=== PATIENT | female | born 1975 | race Caucasian/White ===

== ENCOUNTER 2016-11-26 01:31 | Day surgery (SDC) | payer MEDICARE, MEDICAID ==
[~2016-11-26] VITALS: Ht 167.6 cm; Wt 98.4 kg
[~2016-11-26 01:31] MED LIST: CHOL400T3 PO; DOXE10CA PO; LAMO100T2 PO; LURA40TA3 PO; SULF1TAB35 PO
[2016-11-26] MEDS ORDERED: 0.9% Sodium Chloride 1,000 ML IV SCH (06:00)
[2016-11-26] MEDS ORDERED: fentaNYL-PF 50 mCg/mL 2 mL Inj IVPUSH PRN (06:00)
[2016-11-26] MEDS ORDERED: Sodium Chloride LOK Flush 10 mL Syringe IV PRN (06:00)
[2016-11-26 10:00] VITALS: BP 136/86; PULSE 83; RESP 18; O2SAT 99
[2016-11-26] MEDS ORDERED: OXCA600T PO (10:00)
[2016-11-26] MEDS ORDERED: ARIP10TA16 PO (10:06)
[2016-11-26] MEDS ORDERED: TRAZ-118 PO (10:06)
[2016-11-26] MEDS ORDERED: OMEP20CA11 PO (10:06)
[2016-11-26] MEDS ORDERED: CLOT30SO TOPICAL (10:06)
[2016-11-26] MEDS ORDERED: POLY500P23 MC (10:06)
--- NOTE | 2016-11-26 11:18 | PCM.ENDEGD ---
EGD Date of Service: November 26, 2016 Physician Tomasz Bustamante MD Pre Procedure Diagnosis: Abdominal pain Post Procedure Dx & Findings: Titer hernia esophagitis possible Velasco's esophagus Procedure Esophagogastroduodenoscopy PROCEDURE IN DETAIL: After proper sedation, Olympus video endoscope was inserted into patient's mouth and esophagus was successfully intubated. Scope introduced esophagus. Esophagus showed normal shiny whitish mucosa consistent with squamous cell component. Z line was not intact at 41 cm from the incisors. 2 cm-colored mucosa noted from the Z line. There was evidence of displacement from the GE junction. 4 quadrant biopsies obtained every 2 cm. Also there was a small erosion and biopsy obtained as well. These were placed in the same bottle. Otherwise on the Velasco's esophagus there was no mucosal suspicions for high- grade dysplasia on no banding, no nodules , no mass. 5 cm hiatal hernia noted. Scope further advanced to the stomach. Stomach showed normal shiny mucosa with normal appearing rugae folds without any ulcer mass erosion. Cardia fundus body antrum pylorus were all visualized. Retroflexion was done. Stomach was easily inflated and deflatable using air. Scope further events to the distal duodenum. Duodenum revealed normal villous structures with normal appearing folds without any mass ulcer erosion. 5 biopsies obtained for celiac disease. Impression Esophagitis with possible Velasco's biopsy per protocol Small erosion status post biopsy Hiatal hernia Recommendation Follow up in GI clinic. If she comes back as Velasco's, repeat EGD in 1 year Prilosec continue. Presedation Assessment Risks and Benefits Informed consent was obtained from the patient after all risks and benefits including but not limited to drug reaction, infection, pain, bleeding, perforation, as well as alternatives were discussed. Patient monitoring Continuous pulse oximetry, cardiac monitoring, blood pressure monitoring, IV access, and oxygen at 2L per nasal cannula. Periprocedural Fentanyl: Fentanyl 200mcg Incrementally Midazolam: Midazolam 10mg Incrementally Complications There were no periprocedural complications identified. Post Procedure Plan Post Procedure Recommendations 1. Restrict activities today. 2. Resume normal activities in the morning. 3. Resume medications. 4. GERD behavioral modification: - Avoid fatty, acidic, spicy, large meals - Do not lie down after meals - Do not eat or drink anything for at least 2 1/2 hours before going to bed at night - Discontinue tobacco and alcohol - Decrease or avoid caffeine - Avoid chocolate and mints - Decrease weight - Avoid aspirin and non steroidal anti-inflammatory agents (NSAID) such as Aleve, Advil, Mobic, Naproxen, Ibuprofen, etc 5. Add proton pump inhibitor. Take 30 minutes before 1st meal of the day. 6. Patient informed of normal post procedure side effects as bloating, drowsiness, blood streaking in the stool 7. If gastric biopsy reveal H.pylori, continue with appropriate treatment 8. If small bowel biopsy reveals celiac, continue with appropriate treatment 9. Please don't hesitate to call me with any questions Tomasz Bustamante MD November 26, 2016 11:18
[2016-11-26 11:25] VITALS: BP 129/80; PULSE 87; RESP 16; O2SAT 96
[2016-11-26 11:35] VITALS: BP 123/77; PULSE 84; RESP 16; O2SAT 96
--- NOTE | 2016-11-27 14:57 | PATH ---
SURGICAL PATHOLOGY Attending Physician:Tomasz Bustamante M.D. CASE STATUS: Signed Out PATIENT NAME: MK CASTILLO PID: [id number] : 1975 DATE COLLECTED:11/26/2016 16:57 SPECIMEN: 1: Duodenum, Biopsy 2: Esophagus, Biopsy CLINICAL HISTORY: 1 DUODENAL BX 2. DISTAL ESOPHAGUS FINAL DIAGNOSIS: A. Duodenum, Biopsy: Duodenal mucosa with no diagnostic abnormality. Negative for active inflammation, features of sprue, dysplasia, or malignancy. B. Distal Esophagus, Biopsy: Small, detached fragment of active esophagitis with focal ulceration. No fungal organisms or viral cytopathic effect identified by H&E stain; insufficient inflammatory foci / tissue for special stains. Negative for dysplasia and malignancy. Negative for intestinal metaplasia. ICD10: K20.9 GROSS DESCRIPTION: The specimen is received in two formalin filled containers labeled with the patient's name. 1). The specimen is sublabeled "duodenal" and consists of 5 portions of tissue which aggregate to 0.3 x 0.3 x 0.2 CM. The specimen is entirely submitted in cassette 1A. 2). The specimen is sublabeled "distal esophagus" and consists of 2 portions of tissue which aggregate to 0.3 x 0.3 x 0.2 CM. The specimen is entirely submitted in cassette 2A. 11/26/2016 [facility] ICD-9 CODES: CPT CODES: 1: 24845 2: 72017 Electronically Signed Out Migdalia Loyola MD [facility] Pathology [facility] [address], [place] [address] Technical component performed at [facility], [facility] [address], [place], [address]
== END 2016-11-26 23:59 | disposition home or self-care (01) ==
LOC: END 01:31
PROVIDERS: ATTEND Internal Medicine
DX: K20.9 Esophagitis, unspecified (principal); K44.9 Diaphragmatic hernia without obstruction or gangrene; R10.9 Unspecified abdominal pain; F43.10 Post-traumatic stress disorder, unspecified; F31.89 Other bipolar disorder; K59.00 Constipation, unspecified; R11.2 Nausea with vomiting, unspecified; N94.6 Dysmenorrhea, unspecified; Z90.710 Acquired absence of both cervix and uterus
CPT/HCPCS: 43239; 88305; 99153; G0500; J2250; J3010; J7030

== ENCOUNTER 2017-01-19 09:25 | Day surgery (SDC) | payer MEDICARE, MEDICAID ==
[~2017-01-19 09:25] MED LIST changes: +ARIP10TA16 PO; +CLOT30SO TOPICAL; +OMEP20CA11 PO; +OXCA600T PO; +POLY500P23 MC; +TRAZ-118 PO
[2017-01-19] MEDS ORDERED: Lidocaine Topical 2% 30 mL Jelly ONE (09:38)
== END 2017-01-19 23:59 | disposition home or self-care (01) ==
LOC: END 09:25
PROVIDERS: ATTEND Internal Medicine
DX: R10.9 Unspecified abdominal pain (principal)

== ENCOUNTER 2017-02-15 11:55 | Emergency (ER) | payer MEDICARE, MEDICAID ==
[~2017-02-15] VITALS: Ht 167.6 cm; Wt 101.8 kg
[2017-02-15 12:02] VITALS: BP 190/121; PULSE 88; RESP 20; O2SAT 96
--- NOTE | 2017-02-15 12:40 | ED.REPORT ---
HPI-Psychiatric Illness Date of Service Feb 15, 2017 ED Provider: Pearl Bhatia MD Patient is a 41 year old female with a history of depression, PTSD, anxiety, bipolar disorder and suicide attempts who presents to the ED due to suicidal ideation. Associated symptoms include insomnia. The patient reports having a manic phase last week and this week she has become extremely depressed. The patient states that she "is having a mental breakdown" and states having a plan of overdosing on her pills for suicide. Nursing Notes Stated Complaint: MENTAL BREAKDOWN/BIPOLAR Chief Complaint: Psychiatric Complaint Nursing Notes Reviewed: Yes Allergies: Coded Allergies: ziprasidone (Verified Allergy, Mild, 02/15/17) doxycycline (Verified Adverse Reaction, Severe, N&V, 12/26/15) Scheduled Cholecalciferol (Vitamin D3) (Vitamin D3) 400 Unit Tab.chew 1 TABLET PO DAILY Doxepin (Doxepin) 10 Mg Capsule 10 MG PO HS Lamotrigine (Lamotrigine) 100 Mg Tablet 400 MG PO DAILY Lurasidone (Latuda) 40 Mg Tablet 40 MG PO DAILY Omeprazole (Omeprazole) 20 Mg Capsule.dr 20 MG PO DAILY Oxcarbazepine (Oxcarbazepine) 600 Mg Tablet 600 MG PO BID Sulfamethoxazole/Trimeth 800-160 mg (Bactrim DS 800-160 mg) 1 Each Tablet 1 TABLET PO BID Trazodone (Trazodone) 100 Mg Tablet 100 MG PO HS Miscellaneous Medications Aripiprazole (Aripiprazole) 10 Mg Tablet 10 MG PO Clotrimazole 1% (Clotrimazole 1%) 30 Ml Solution Unknown Dose TOPICAL Polyethylene Glycol 8000 (Polyethylene Glycol) 500 Gm Powder 500 GM MC General Time Seen by MD: 12:40 Chief Complaint Suicidal ideation Hx Obtained From: Patient Arrived By: Walk-in Onset Occurred: 1 week ago Symptom Duration: Since onset Recent Healthcare: No recent hospitalization, Recent doctor visit Similar Sx Previous: Yes Risk-Psychiatric Illness Suicide Risk Stratification RF Statements: Risk factors reviewed Past Medical History Past Medical History bipolar PTSD anxiety OCD previous suicide attempt spinal meningitis Reports: Cancer (cervical) Reports: Depression Past Surgical History Reports: Hysterectomy Reports: Tubal ligation Smoking History Current Every Day Smoker Social History Alcohol Use: In recovery Drug Use: In recovery Ambulatory Status Independent Review of Systems Constitutional: Denies: Chills, Fever Respiratory: Denies: Non-productive cough, Shortness of breath Skin: Denies Itching, Denies Rash Psychiatric: Reports: Anxiety, Insomnia, Suicidal ideation Complete sys rev & neg: except as marked. Physical Exam Initial Vital Signs Vital Signs (First) Date Time Temp Pulse Resp B/P Pulse Ox O2 Delivery O2 Flow Rate FiO2 02/15/17 12:02 36.4 88 20 190/121 96 Room Air Initial VS: Reviewed General/Constitutional: Awake, Alert Behavior: Positive: Tearful Neurologic: Oriented X3, Speech NL, No motor deficits, No sensory deficits Abnormal Mood/Affect: Positive: Flat affect Head / Eyes: Atraumatic, Normocephalic, PERRL, EOMI Respiratory / Chest: Atraumatic, Breath sounds NL, Breath sounds = bilat, No respiratory distress Cardiovascular: Heart rate NL, Regular rhythm, Heart sounds NL Abdomen: Atraumatic, Soft, Non-tender Skin: Atraumatic, Color NL, No rash, Warm, Dry Neck: Atraumatic, Supple Upper Extremity / MS: Atraumatic, Full range of motion Interpretation & Diagnostics Lab Results Interpretation Result Diagram: 02/15/17 1253 02/15/17 1253 Test 02/15/17 12:53 02/15/17 13:18 White Blood Count 9.3th/mm3 (3.8-10.1) Red Blood Count 4.40mil/mm3 (3.90-5.20) Hemoglobin 13.7g/dL (12.0-15.6) Hematocrit 39.8% (35.0-46.0) Mean Corpuscular Volume 90.5fL (81-100) Mean Corpuscular Hemoglobin 31.1pg (27.0-35.0) Mean Corpuscular Hemoglobin Concent 34.4% (32.0-37.0) Red Cell Distribution Width 12.8% (12.3-15.4) Platelet Count 170bil/L (150-400) Neutrophils (%) (Auto) 76.8% (40-74) Lymphocytes (%) (Auto) 16.1% (14-46) Monocytes (%) (Auto) 5.7% (4-12) Eosinophils (%) (Auto) 1.0% (0-5) Basophils (%) (Auto) 0.2% (0-3) Sodium Level 136mEq/L (134-144) Potassium Level 4.2mEq/L (3.5-5.2) Chloride Level 102mEq/L (97-108) Carbon Dioxide Level 20mmol/L (18-29) Blood Urea Nitrogen 17mg/dL (6-24) Creatinine 0.80mg/dL (0.57-1.00) Estimat Glomerular Filtration Rate 114mL/min (>59) Glucose Level 92mg/dL (60-99) Calcium Level 8.0mg/dL (8.5-10.1) Total Bilirubin 0.2mg/dL (0.0-1.2) Aspartate Amino Transf (AST/SGOT) 14U/L (0-50) Alanine Aminotransferase (ALT/SGPT) 14U/L (0-32) Alkaline Phosphatase 66U/L (25-150) Total Protein 6.6g/dL (6.4-8.4) Albumin 3.8g/dL (3.4-5.0) Thyroid Stimulating Hormone (TSH) 1.220uIU/mL (0.450-4.500) Hold Urine Received (Received) Re-Eval/Medical Decision Re-Evaluation/Progress #1: Time of Eval: 16:18 Re-Evaluation/Progress Note: Discussed lab work. Patient reports feeling slightly improved after Ativan. Discussed plan to find an inpatient bed. Re-Evaluation/Progress #2: Time of Eval: 18:13 Re-Evaluation/Progress Note: In consultation with the licensed social worker, likely a bed available at [facility] this evening. Waiting to talk to physician at [facility]. Counseled Regarding: Diagnosis, Lab results, Need for follow-up, When/why to return to ED Discharge & Departure Impression: Primary Impression: Bipolar affective disorder, currently depressed, moderate Additional Impression: Suicidal ideation )( Condition at Discharge: No danger to others Disposition: Transfer, Psychiatric Inpt ([facility], via BLS transport) Discharge Condition All VS Reviewed: Yes Condition: Stable Referrals: Vangie Hooker MD (PCP) Scribe Attestation Portions of this note were transcribed by Carina Miller. I, Dr. Bhatia personally performed the history, physical exam and medical decision-making; I reviewed and confirmed the accuracy of the information in the transcribed note. Signed by: Junior Dumont, 02/15/17 and 1410 copies to: Vangie Hooker MD, Shawna L MD Feb 15, 2017 12:40 Sabra Miller Feb 15, 2017 14:10
[2017-02-15] MEDS ORDERED: LORazepam 1 mg Tablet PO ONE (12:45)
[2017-02-15 13:02] LABS: BASOPHILS % (AUTO) 0.2 % (0-3); MONOCYTES % (AUTO) 5.7 % (4-12); Mean Corpuscular Hemoglobin 31.1 pg (27.0-35.0); Mean Corpuscular Volume 90.5 fL (81-100); NEUTROPHILS % (AUTO) 76.8 % (40-74); Platelet Count 170 bil/L (150-400)
[2017-02-15 18:08] VITALS: BP 119/60; PULSE 80; RESP 12; O2SAT 95
[2017-02-15 19:17] VITALS: BP 121/77; PULSE 75; RESP 16; O2SAT 99
== END 2017-02-15 19:17 | disposition other institution (70) ==
LOC: SED 11:55
DX: F31.32 Bipolar disorder, current episode depressed, moderate (principal); R45.851 Suicidal ideations; F43.10 Post-traumatic stress disorder, unspecified; F41.9 Anxiety disorder, unspecified; C53.9 Malignant neoplasm of cervix uteri, unspecified; F17.200 Nicotine dependence, unspecified, uncomplicated; Z88.1 Allergy status to other antibiotic agents; Z88.8 Allergy status to other drugs, medicaments and biological substances